=== PATIENT | male | born 1970 | race Two or more races ===

== ENCOUNTER 2022-04-04 21:31 | Inpatient (IN) | payer OTHER ==
[~2022-04-04] VITALS: Ht 190.5 cm; Wt 90.7 kg
[2022-04-04] MEDS ORDERED: LOSARTAN POTAS100 MG PO (22:03)
[2022-04-04] MEDS ORDERED: METFORMIN HCL1000 M3 PO (22:03)
== END 2022-04-09 14:03 | disposition home or self-care (01) | DRG 419 ==
LOC: ER 21:31 → SURH 04-05 11:15
PROVIDERS: Surgery; ADMIT Internal Medicine; ATTEND Internal Medicine
PROC: BF37ZZZ Magnetic Resonance Imaging (MRI) of Pancreas (ICD-10-PCS; 2022-04-05)
PROC: BF522Z0 Other Imaging of Gallbladder using Fluorescing Agent, Intraoperative (ICD-10-PCS; 2022-04-07)
PROC: 0FT44ZZ Resection of Gallbladder, Percutaneous Endoscopic Approach (ICD-10-PCS; principal; 2022-04-07 11:45)
DX: K80.00 Calculus of gallbladder with acute cholecystitis without obstruction (principal); I10 Essential (primary) hypertension; E11.9 Type 2 diabetes mellitus without complications; Z20.822 Contact with and (suspected) exposure to COVID-19